=== PATIENT | male | born 1995 | race African-American/Black ===

== ENCOUNTER 2017-05-21 00:01 | Emergency (ER) | payer BC ==
[~2017-05-21] VITALS: Ht 177.8 cm; Wt 122.0 kg
[2017-05-21 00:05] VITALS: Ht 177.8 cm; Wt 122.0 kg
[2017-05-21] MEDS ORDERED: SODIUM CHLORIDE 0.9% 1000ML 1,000 ML IV STA (00:28)
[2017-05-21] MEDS ORDERED: ALBUT/IPRATROP 3MG/0.5MG NEB 3 ML VIAL INH STA (00:28)
[2017-05-21] MEDS ORDERED: KETOROLAC TROMETHAMINE 30 MG/ML VIAL IV STA (00:28)
[2017-05-21] MEDS ORDERED: IBUP-1050 PO (00:53)
[2017-05-21 01:01] LABS: BASO % 0.1 %; BASO ABS # 0.03 K/uL (0-0.2); EOS % 0.8 %; EOS ABS # 0.17 K/uL (0-0.5); HEMATOCRIT 42.6 % (42-52); HEMOGLOBIN 15.6 g/dL (14.0-18.0); IG# 0.08 K/uL (0.00-0.02); LYMPH % 7.2 %; LYMPH ABS # 1.48 K/uL (1.2-3.4); MEAN CELL VOLUME 84.7 fL (80-100); MEAN CORPUSCULAR HGB CONC 36.6 g/dl (32-36); MEAN PLATELET VOLUME 11.3 fL (7.4-10.4); MONO % 7.1 %; MONO ABS # 1.47 K/uL (0.11-0.59); NEUT % 84.4 %; NEUT ABS # 17.44 K/uL (1.4-6.5); PLATELET COUNT 197 K/uL (130-400); RED CELL DISTRIBUTION WIDTH CV 13.5 % (11.5-14.5); RED CELL DISTRIBUTION WIDTH SD 41.3 fL (36.4-46.3); WHITE BLOOD COUNT 20.67 K/uL (4.8-10.8)
[2017-05-21 01:02] LABS: INFLUENZA B ANTIGEN Neg for Influ B (NEG)
[2017-05-21] MEDS ORDERED: DEXAMETHASONE **PF** INJ 10 MG/ML VIAL PO ONE (01:15)
[2017-05-21 01:20] LABS: ALBUMIN 3.7 gm/dl (3.4-5.0); ALT/SGPT 41 U/L (12-78); AST/SGOT 24 U/L (15-37); BLOOD UREA NITROGEN 11 mg/dl (7-18); CARBON DIOXIDE 24 mmol/L (21-32); CREATININE 1.09 mg/dl (0.60-1.40); GLUCOSE 103 mg/dl (70-99); LIPASE 222 U/L (73-393); POTASSIUM 3.8 mmol/L (3.5-5.1); SODIUM 136 mmol/L (136-145)
[2017-05-21 01:25] LABS: ALKALINE PHOSPHATASE 102 U/L (45-117); TOTAL PROTEIN 7.3 gm/dl (6.4-8.2)
[2017-05-21 03:40] VITALS: TEMP 37.2
[2017-05-21] MEDS ORDERED: ACETAMINOPHEN 500 MG TAB PO STA (03:48)
[2017-05-21] MEDS ORDERED: PRED50TA PO (04:26)
[2017-05-21] MEDS ORDERED: ALBUTEROL HFA 8 GM INHALER INH STA (04:36)
--- NOTE | 2017-05-21 04:45 | EMERGENCY ROOM VISIT NOTE ---
History First contact with patient: 00:08 Chief Complaint: FLU LIKE SX Stated Complaint: CHEST PAIN, TIGHTNESS, COUGHING, FEVER History of Present Illness The patient is a 22 year old male who presents to the Emergency Room with complaints of fever, chills, cough, congestion, chest pain with coughing for the past 2 days. Patient took Advil just prior to arrival. He is tolerating p.o. fluids and food. Coughing makes the chest pain worse and nothing makes it better. No exertional chest pain. No family history of heart disease. Patient denies dyspnea, neck stiffness, sore throat, abdominal pain, vomiting, diarrhea, urinary symptoms. No flu shot. No recent travel. Review of Systems An 10 system review of systems was completed with positives and pertinent negatives listed in the HPI. Past Medical/Surgical History none Family History Diabetes mellitus Hypertension Social History Smoking Status: Current Every Day Smoker Alcohol Use: none Drug Use: none Marital Status: single Housing Status: lives with family Occupation Status: [employer] student Current/Historical Medications Scheduled Prednisone (Prednisone), 50 MG PO DAILY Scheduled PRN Ibuprofen (Advil), 200-600 MG PO Q4H PRN for Pain or Fever Physical Exam Vital Signs Date Time Temp Pulse Resp B/P (MAP) Pulse Ox O2 Delivery O2 Flow Rate FiO2 05/21/17 03:40 37.2 83 20 114/66 92 Room Air 05/21/17 02:15 37.4 108 20 124/70 92 Room Air 05/21/17 01:17 111 05/21/17 01:14 103 20 128/70 93 Room Air 05/21/17 01:06 Room Air 05/21/17 01:06 Room Air 05/21/17 00:05 38.3 106 18 135/77 94 Room Air Physical Exam VITALS: Vitals are noted on the nurse's note and reviewed by myself. Vital signs low-grade fever. GENERAL: Pleasant male, in no acute distress, nondiaphoretic, well-developed well-nourished. SKIN: The skin was without rashes, erythema, edema, or bruising. There is no tenting of the skin. Capillary reflex less than 2 seconds. HEAD: Normocephalic atraumatic. EARS: External auditory canals clear, tympanic membranes pearly meadows without erythema or effusion bilaterally. EYES: Pupils equal round and reactive to light and accommodation. Conjunctivae without injection, sclerae without icterus. Extraocular movements intact. NOSE: Patent, turbinates without inflammation or discharge. No sinus tenderness. MOUTH: Mucous membranes moist. Pharynx without erythema or exudate. Uvula midline. Airway patent. Tongue does not deviate. NECK: Supple without nuchal rigidity. No lymphadenopathy. No thyromegaly. Cervical spine is nontender. No JVD. HEART: Regular rate and rhythm without murmurs gallops or rubs. LUNGS: Mild diffuse end expiratory wheezes, without rales or rhonchi. No retractions or accessory muscle use. ABDOMEN: Positive bowel sounds x 4. Normal tympanic percussion. Soft, nontender, without masses or organomegaly. Mott sign negative. No guarding or rebound tenderness. No CVA tenderness MUSCULOSKELETAL: No muscle atrophy, erythema, or edema noted. NEURO: Patient was alert and oriented to person place and time. Normal sensation to light and sharp touch. No focal neurological deficits. Medical Decision & Procedures Laboratory Results 05/21/17 00:51 Red Blood Count 5.03, Mean Corpuscular Volume 84.7, Mean Corpuscular Hemoglobin 31.0, Mean Corpuscular Hemoglobin Concent 36.6, Mean Platelet Volume 11.3, Neutrophils (%) (Auto) 84.4, Lymphocytes (%) (Auto) 7.2, Monocytes (%) (Auto) 7.1, Eosinophils (%) (Auto) 0.8, Basophils (%) (Auto) 0.1, Neutrophils # (Auto) 17.44, Lymphocytes # (Auto) 1.48, Monocytes # (Auto) 1.47, Eosinophils # (Auto) 0.17, Basophils # (Auto) 0.03 05/21/17 00:51 Test 05/21/17 00:28 05/21/17 00:51 05/21/17 01:00 05/21/17 03:14 Influenza Type A Antigen Neg for Influ A (NEG) Influenza Type B Antigen Neg for Influ B (NEG) White Blood Count 20.67 K/uL (4.8-10.8) Red Blood Count 5.03 M/uL (4.7-6.1) Hemoglobin 15.6 g/dL (14.0-18.0) Hematocrit 42.6 % (42-52) Mean Corpuscular Volume 84.7 fL (80-100) Mean Corpuscular Hemoglobin 31.0 pg (25-34) Mean Corpuscular Hemoglobin Concent 36.6 g/dl (32-36) Platelet Count 197 K/uL (130-400) Mean Platelet Volume 11.3 fL (7.4-10.4) Neutrophils (%) (Auto) 84.4 % Lymphocytes (%) (Auto) 7.2 % Monocytes (%) (Auto) 7.1 % Eosinophils (%) (Auto) 0.8 % Basophils (%) (Auto) 0.1 % Neutrophils # (Auto) 17.44 K/uL (1.4-6.5) Lymphocytes # (Auto) 1.48 K/uL (1.2-3.4) Monocytes # (Auto) 1.47 K/uL (0.11-0.59) Eosinophils # (Auto) 0.17 K/uL (0-0.5) Basophils # (Auto) 0.03 K/uL (0-0.2) RDW Standard Deviation 41.3 fL (36.4-46.3) RDW Coefficient of Variation 13.5 % (11.5-14.5) Immature Granulocyte % (Auto) 0.4 % Immature Granulocyte # (Auto) 0.08 K/uL (0.00-0.02) Anion Gap 10.0 mmol/L (3-11) Est Creatinine Clear Calc Drug Dose 139.2 ml/min Estimated GFR () 111.1 Estimated GFR (Non- 95.8 BUN/Creatinine Ratio 10.4 (10-20) Calcium Level 9.0 mg/dl (8.5-10.1) Total Bilirubin 1.8 mg/dl (0.2-1) Direct Bilirubin 0.4 mg/dl (0-0.2) Aspartate Amino Transf (AST/SGOT) 24 U/L (15-37) Alanine Aminotransferase (ALT/SGPT) 41 U/L (12-78) Alkaline Phosphatase 102 U/L (45-117) Total Protein 7.3 gm/dl (6.4-8.2) Albumin 3.7 gm/dl (3.4-5.0) Lipase 222 U/L (73-393) Bedside Troponin I 0.120 ng/ml (0-0.045) Troponin I < 0.015 ng/ml (0-0.045) Medications Administered Medications (Trade) Dose Ordered Sig/Jossue Route Start Time Stop Time Status Last Admin Dose Admin Albuterol/ Ipratropium (Duoneb) 3 ml NOW STAT INH 05/21/17 00:28 05/21/17 00:30 DC 05/21/17 01:04 3 ML Dexamethasone Sodium Phosphate (Dexamethasone Inj Pf) 10 mg NOW ONCE PO 05/21/17 01:15 05/21/17 01:16 DC 05/21/17 01:09 10 MG Acetaminophen (Tylenol Tab) 1,000 mg NOW STAT PO 05/21/17 03:48 05/21/17 03:50 DC 05/21/17 03:57 1,000 MG ED Course Prior records/ancillary studies reviewed. Triage Nursing notes reviewed. Additional history obtained from family. The patient's history was concerning for fever. Differential diagnosis: Etiologies such as viral syndrome, otitis, pharyngitis, pneumonia, influenza, meningitis, urinary tract infection, sepsis, bacteremia, cardiac as well as others were entertained. Physical examination: Patient is alert, tolerating fluids and nontoxic-appearing ER treatment provided: pt refused IV and requested po only. pt was given po decadron, neb and po fluids On reassessment the patient felt better. Diagnostics interpreted by me: ECG: Normal sinus, normal intervals, no acute ST-T wave changes, rate of 67. Impression normal sinus rhythm interpreted by myself. EKG from 2013 is reviewed and unchanged. The labs revealed leukocytosis, negative influenza. Troponin in the lab is negative 2 greater than 3 hours apart. Troponin here for POC testing was marginally elevated. This most likely is a equipment malfunction error. Imaging studies: Chest x-ray with no acute consolidation, pneumothorax or free of my interpretation This appears to be consistent with influenza-like illness with bronchitis. Patient had 2 troponins that were negative greater than 3 hours apart and two repeat EKGs that were unchanged. I did a bedside limited cardiac ultrasound that showed no pericardial effusion per my interpretation and no obvious hypokinesis. Patient felt much better after being medicated as above. He was tolerating fluids. He declined the IV. He was advised to rest, stay well hydrated and take medications as directed. He is advised to follow-up family care in a few days or here in the ER sooner for high fevers, difficulty breathing, chest pains, worsening signs or symptoms or as needed. I do not believe this is cardiac in etiology. I believe the POC troponin here in the ER was an error. He had 2 negative troponins that were greater than 3 hours apart in the lab that were negative. His symptoms were not exertional. I do not believe he has Pericarditis or myocarditis. By the evaluation outlined above emergent etiologies such as otitis, pharyngitis, pneumonia, meningitis, urinary tract infection, sepsis, bacteremia, as well as others were deemed relatively unlikely. The pt informed about the findings as listed above. All questions were answered and pleased with the treatment. Return instructions were outlined and the patient was discharged in stable condition. Outpatient prescription management: Prednisone Referral: The patient was referred back to their primary care physician for follow-up in 2 to 3 days for a recheck of the current condition. Case reviewed with my attending The chart was completed utilizing [employer] Speech voice recognition software. Grammatical errors, random word insertions, pronoun errors, and incomplete sentences are an occassional consequence of this system due to software limitations, ambient noise, and hardware issues. Any formal questions or concerns about the content, text, or information contained within the body of this dictation should be directly addressed to the physician email marketing assistant for clarification. Medical Decision As above Medication Reconcilliation Current Medication List: was personally reviewed by me Blood Pressure Screening Patient's blood pressure: Normal blood pressure Impression Primary Impression: Influenza-like symptoms Additional Impressions: Acute bronchitis Chest pain Departure Information Dispostion Home / Self-Care Condition GOOD Prescriptions Prednisone (Prednisone) 50 Mg Tab 50 MG PO DAILY for 4 Days, #4 TAB Prov: Ladonna Sterling PA-C 05/21/17 Forms HOME CARE DOCUMENTATION FORM, Work Instructions, Return To Work: 2 days IMPORTANT VISIT INFORMATION Patient Instructions My [facility], ED Upper Resp Infec No Abx Tx, ED Flu Additional Instructions Albuterol Inhaler: Take 2 puffs four times daily for five days, then as needed. Prednisone 50mg: Once daily until the prescription is finished. It is best to take this earlier in the day as some patients note occasional difficulty falling asleep when taken in the late evening. Acetaminophen(Tylenol) may be used for fever or pain. Use 1000mg every six hours as needed. Avoid using more than 3000mg in a 24 hour period. (AND/OR) Ibuprofen(Motrin, Advil) may be used for fever or pain. Use 600mg every six hours as needed. Take with food. Avoid using more than 2400mg in a 24 hour period. Do not use 2400mg per day for more than three consecutive days without physician direction. Prolonged inappropriate use can lead to stomach upset or ulcers. Afrin nasal spray: 2-3 sprays to each nostril twice daily as needed for congestion. Do not use for more than 3-4 days because it can lead to worsening rebound congestion. Pseudoephedrine(Sudaphed): 30-60mg every 6 hours as needed for nasal congestion. Do not take this with other stimulant products or supplements. Rest and drink plenty of fluids. Controlling your fever with Tylenol and Ibuprofen as above will make you feel better. Wash your hands after nose blowing, sneezing, or coughing. Most germs are spread through contact, therefore improper hygiene may result in your close contacts and loved ones becoming ill just like you. Continue current medications. Return to the ER for severe headache, neck stiffness, chest pain, difficulty breathing, fevers, vomiting, worsening of your condition, or as needed. Follow up with your primary physician this week for a recheck of your current condition. Work Instructions Return To Work: 2 days Problem Qualifiers
[2017-05-21 04:48] VITALS: BP 141/96; PULSE 86; O2SAT 93
--- NOTE | 2017-05-21 06:47 | DIAGNOSTIC IMAGING REPORT ---
CHEST ONE VIEW PORTABLE HISTORY: 22 years-old Male CHEST PAIN acute atypical chest pain COMPARISON: Chest radiograph 07/01/2013 TECHNIQUE: Portable AP view of the chest FINDINGS: The cardiomediastinal and hilar silhouettes are within normal limits. No pneumothorax or pleural effusion. The right lung appears clear. Hazy opacity of the left lung base is noted. Bones of the chest appear grossly intact. IMPRESSION: Hazy left basilar opacity may be secondary to composite pulmonary vascularity and overlying soft tissue, however airspace disease could have a similar appearance. Correlate with clinical exam. The above report was generated using voice recognition software. It may contain grammatical, syntax or spelling errors. Electronically signed by: Fox Lim M.D. 05/21/2017 6:45 AM Dictated Date/Time: 05/21/2017 6:43 AM
== END 2017-05-21 04:50 | disposition home or self-care (01) ==
LOC: C.EDB 00:02 → C.EDA 04:50
DX: R50.9 Fever, unspecified (principal); R05 Cough; J20.9 Acute bronchitis, unspecified; R07.9 Chest pain, unspecified; Z83.3 Family history of diabetes mellitus; Z82.49 Family history of ischemic heart disease and other diseases of the circulatory system; F17.210 Nicotine dependence, cigarettes, uncomplicated